=== PATIENT | female | born 1995 | race Caucasian/White ===

== ENCOUNTER 2017-01-01 08:49 | Observation (INO) | payer OTHER ==
[2017-01-01] MEDS ORDERED: BUPIVACAINE 0.25% 30 ML SDV ONE (09:03)
[2017-01-01] MEDS ORDERED: LIDOCAINE 1% 2 ML INJ ONE (09:14)
[2017-01-01] MEDS ORDERED: fentaNYL 100 MCG/2 ML INJ ONE ×2 (09:31→11:15)
[2017-01-01] MEDS ORDERED: PROPOFOL 200 MG/20 ML VIAL ONE (09:33)
[2017-01-01] MEDS ORDERED: ONDANSETRON 4 MG/2 ML VIAL IVP PRN (09:54)
[2017-01-01] MEDS ORDERED: SCOPOLAMINE HYDROBROMIDE 1.5 MG PATCH TD ONE (10:00)
[2017-01-01] MEDS ORDERED: D5W LR 1,000 ML IV SCH (10:00)
[2017-01-01] MEDS ORDERED: MIDAZOLAM 2 MG/2 ML VIAL ONE (10:01)
[2017-01-01] MEDS: HYDROCOD/APAP 7.5/325 IN 15ML UDCUP PO PRN ×2 (13:10→17:21)
[2017-01-01] MEDS: DEXAMETHASONE 4 MG/ML VIAL IVP SCH ×2 (14:56→21:34)
--- NOTE | 2017-01-01 16:10 | GOP ---
[f rep st] OPERATIVE REPORT DATE OF OPERATION: 01/01/2017 SURGEON: Aguila Walker MD ANESTHESIA: General endotracheal. PREOPERATIVE DIAGNOSIS: Chronic tonsillitis. POSTOPERATIVE DIAGNOSIS: Chronic tonsillitis. PROCEDURE PERFORMED: Tonsillectomy. FINDINGS: Tonsillar hypertrophy. ESTIMATED BLOOD LOSS: 40 mL. DESCRIPTION OF PROCEDURE: The patient was placed on the operating table in a supine position. Afte r induction of adequate general endotracheal anesthesia, sterile draping was performed. A shoulder roll was placed to the patient's shoulders to extend the neck. Sterile eye pads and head drape were placed. At this point, the Yamel-Trino mouth gag was inserted over the previously placed endotrach eal tube, with care given to maintain it to its correct depth. The Yamel-Trino mouth gag was then o pened, revealing enlarged tonsils. The right tonsil was grasped with an Allis clamp and retracted m edially. Circumferential dissection of the right tonsil was performed using a needle-tip Bovie elec trocautery. Hemostasis was obtained throughout the right tonsillar fossa by the use of the Bovie el ectrocautery as well. The left tonsil was then grasped and retracted medially, and then excised in a manner identical to that of the right. Hemostasis was obtained throughout the left tonsillar yumiko a by the use of Bovie electrocautery as well. Once this was completed, the Yamel-Trino mouth gag wa s let down for approximately 1 minute and then reopened. No further bleeding was noted. The right and left tonsillar fossae were then infiltrated with 0.25% Marcaine solution. A total of 14 mL was injected with care given to the avoidance of intravascular injection. At this point, the Yamel-Del s mouth gag was let down for approximately 1 minute and then reopened. No further bleeding was note d from the injection sites. An orogastric tube was passed. The patient's gastric contents were asp irated. She was then awakened and transferred to the postanesthesia recovery area in stable conditi on. FLUID REPLACEMENT: 700 mL. COMPLICATIONS: None. /[id number]/MODL
[2017-01-01] MEDS: AMOXICILLIN SUSP 250 MG/5 ML BTL PO SCH ×2 (16:22→21:33)
--- NOTE | 2017-01-01 17:24 | SOAPPROG ---
SOAP Progress Note Assessment/Plan: Pt s/p tonsillectomy. doing well. tolerating po. No bleeding Seen by Dr. celeste Plan for discharge in am. 01/01/17 17:22 Objective: Vital Signs Temp Pulse Resp BP Pulse Ox 36.4 C 64 16 110/51 L 96 01/01/17 16:33 01/01/17 16:33 01/01/17 16:33 01/01/17 16:33 01/01/17 16:33 12/31/16 01/01/17 01/02/17 05:59 05:59 05:59 Intake Total 1000 Output Total 50 Balance 950 ICD10 Worksheet Patient Problems: Problems Problem Status Onset Tonsillar enlargement Acute Tonsillar hypertrophy Acute - ICD10 Problem Qualifiers (1) Tonsillar enlargement (2) Tonsillar hypertrophy
[2017-01-02] MEDS: HYDROCOD/APAP 7.5/325 IN 15ML UDCUP PO PRN ×2 (00:34→09:03)
[2017-01-02 03:46] VITALS: RESP 16
[2017-01-02] MEDS: DEXAMETHASONE 4 MG/ML VIAL IVP SCH (05:58)
[2017-01-02 07:56] VITALS: BP 103/51; PULSE 62; TEMP 98.3; O2SAT 95
[2017-01-02] MEDS: AMOXICILLIN SUSP 250 MG/5 ML BTL PO SCH (08:53)
--- NOTE | 2017-01-02 09:05 | SOAPPROG ---
SOAP Progress Note Assessment/Plan: Assessment:21 year old POD 1 s/p tonsillectomy. Doing well. - Discharge home this AM - Follow-up 2 weeks with our office 01/02/17 09:04 Subjective: 21 year old female POD 1 s/p tonsillectomy. Doing well. No complaints. Objective: Vital Signs Temp Pulse Resp BP Pulse Ox 36.8 C 62 16 103/51 L 95 01/02/17 07:55 01/02/17 07:55 01/02/17 07:55 01/02/17 07:55 01/02/17 07:55 01/01/17 01/02/17 01/03/17 05:59 05:59 05:59 Intake Total 1000 Output Total 50 Balance 950 Normal voice, no stridor Normal OP s/p tonsillectomy ICD10 Worksheet Patient Problems: Problems Problem Status Onset Tonsillar enlargement Acute Tonsillar hypertrophy Acute
== END 2017-01-02 10:35 | disposition home or self-care (01) ==
LOC: F3E 08:49
PROVIDERS: ADMIT Otolaryngology; ATTEND Otolaryngology
PROC: 0CTPXZZ Resection of Tonsils, External Approach (ICD-10-PCS; principal; 2017-01-01 10:00)
DX: J35.01 Chronic tonsillitis (principal)
CPT/HCPCS: 42826; G0378; J1100; J2250; J2704; J3010

== ENCOUNTER → 2017-03-31 | Outpatient (CLI) | payer OTHER | LOC: BMCIMAGING 07:24 | PROVIDERS: ATTEND Nurse Practitioner Adult Health | DX: R14.0 Abdominal distension (gaseous) (principal) ==